=== PATIENT | female | born 1995 | race African-American/Black ===

== ENCOUNTER 2021-07-11 14:11 | Emergency (ER) | payer SELFPAY ==
[~2021-07-11] VITALS: Ht 170.2 cm; Wt 65.0 kg
[2021-07-11 14:37] VITALS: BP 112/87
[2021-07-11] MEDS ORDERED: CLOT15CR27 TP (14:59)
== END 2021-07-11 15:18 | disposition home or self-care (01) ==
LOC: EDBD 14:19 → ER 14:19
DX: B35.4 Tinea corporis (principal)
CPT/HCPCS: 99283